=== PATIENT | male | born 1990 | race Caucasian/White ===

== ENCOUNTER 2016-05-30 14:58 | Emergency (ER) | payer MEDICAID ==
[2016-05-30] MEDS ORDERED: SODIUM CHLORIDE 0.9% 1,000 ML ONE (18:32)
== END 2016-05-30 20:23 | disposition home or self-care (01) ==
LOC: ER 14:58
DX: R07.89 Other chest pain (principal)
CPT/HCPCS: 36415; 71010; 80053; 82550; 83735; 84484; 85025; 85610; 85730; 93005; 96360